=== PATIENT | female | born 1975 | race Caucasian/White ===

== ENCOUNTER → 2017-11-20 | Outpatient (CLI) | payer BC ==
[~2017-11-20] MED LIST: CIP500 PO; PHENA200 PO
--- NOTE | 2017-11-24 11:18 | RADIOLOGY IMAGING REPORT ---
FACILITY: [facility] PATIENT NAME: LIONEL ZIMMERMAN : [id number] MR: [id number] V: [id number] EXAM DATE: [id number] ORDERING PHYSICIAN: PATRIZIA SHERWOOD TECHNOLOGIST: June Sotelo PROCEDURE:BILATERAL DIGITAL SCREENING MAMMOGRAM WITH CAD ASSISTED INTERPRETATION & 3D TOMOSYNTHESIS COMPARISON:Prior mammograms 05/14/16, 04/25/08, 02/01/07. INDICATIONS:screening FINDINGS: The breast tissue is heterogeneously dense. There is no dominant mass, suspicious cluster of microcalcifications or persistent areas of architectural distortion. DIAGNOSTIC CATEGORY 1--NEGATIVE. RECOMMENDATIONS: ROUTINE MAMMOGRAM AND CLINICAL EVALUATION IN 1 YEAR. IMPRESSION: BIRADS 1: Negative. Dictated by: Edgardo Aquino M.D. on 11/24/2017 at 9:34 Transcribed by: MARVEL on 11/24/2017 at 9:57 Approved by: Edgardo Aquino M.D. on 11/24/2017 at 11:18 [facility]
== END ==
LOC: MAMO 03:29
PROVIDERS: ATTEND Nurse Practitioner Family
DX: Z12.31 Encounter for screening mammogram for malignant neoplasm of breast (principal)
CPT/HCPCS: 77063; 77067

== ENCOUNTER → 2018-03-12 | Outpatient (CLI) | payer BC ==
--- NOTE | 2018-03-15 22:35 | RT HOLTER TEST ---
FACILITY: [facility] - [place] PATIENT NAME: LIONEL ZIMMERMAN : [id number] MR: [id number] V: [id number] EXAM DATE: ORDERING PHYSICIAN: PATRIZIA SHERWOOD TECHNOLOGIST: ALANA Hook-up date: 2018-03-12 16:01:00 Duration: 47:59:00 Test Indications: CP AND PALPITATIONS Medications: [id number] QRS complexes 36 Ventricular ectopics which represent <1 % of total QRS comp. 471 Supraventricular ectopics which represent <1 % of total QRS comp. * Paced QRS complexes which represent % of total QRS comp. VENTRICULAR ECTOPY 36 Isolated 0 Bigeminal Cycles 0 Couplets 0 Runs 0 Beats in Runs * Beats LONGEST at * BPM at :: -- * Beats FASTEST at * BPM at :: -- SUPRAVENTRICULAR ECTOPY 471 Isolated 0 Couplets 0 Runs 0 Beats in Runs * Beats LONGEST at * BPM at :: -- * Beats FASTEST at * BPM at :: -- HEART RATES 50 MIN at 07:04:54 2018-03-13 81 AVG 146 MAX at 03:39:18 2018-03-14 LONGEST RR 1.384 secs at 07:04:48 2018-03-13 S-T LEVELS Channel 1 -12.800 mm MIN at 16:01:00 2018-03-12 -12.800 mm MAX at 16:01:00 2018-03-12 Channel 2 -12.800 mm MIN at 16:01:00 2018-03-12 -12.800 mm MAX at 16:01:00 2018-03-12 Channel 3 -12.800 mm MIN at 16:01:00 2018-03-12 -12.800 mm MAX at 16:01:00 2018-03-12 The patient's many symptom events usually coincided with supraventricular ectopy (SVE), irregular rhy thm without obvious P waves, and sinus tachycardia. The patient was predominantly in a sinus rhythm with rare ventricular ectopy and occasi onal SVE. Confirmed by JING KNOX ([id number]) on 03/15/2018 10:35:35 PM Referred By: Overread By: JING KNOX
== END ==
LOC: RESP 15:46
PROVIDERS: ATTEND Nurse Practitioner Family
DX: R07.9 Chest pain, unspecified (principal); R00.2 Palpitations
CPT/HCPCS: 93225; 93226